=== PATIENT | male | born 1930 | race Caucasian/White ===

== ENCOUNTER → 2019-05-08 | Outpatient (CLI) | payer MEDICARE ==
[~2019-05-08] MED LIST: ACETAMINOPHEN325 M1 PO; ASPIRIN EC81 M1 PO; ATENOLOL 25 MG25 M1 PO; ATENOLOL 50MG T50 MG PO; CARDIZEM30 MG PO; FISHOIL; METFORMIN HCL500 M3 PO; METHYLPHENIDATE5 M1 PO; MIRALAX17 GM PO; PEPCID20 MG PO; PLAQUENIL200 MG PO; PLAVIX 75 MG TA75 MG PO; QUINAPRIL 20 MG20 MG PO; SIMVASTATIN80 MG PO; TRAMADOL 50 MG50 MG PO; TRICOR145 MG PO; ZOCOR 10 MG TAB10 MG
== END ==
LOC: SJCVCIMAG 04-02 11:46
DX: I65.23 Occlusion and stenosis of bilateral carotid arteries (principal); I11.9 Hypertensive heart disease without heart failure; I08.3 Combined rheumatic disorders of mitral, aortic and tricuspid valves; I70.202 Unspecified atherosclerosis of native arteries of extremities, left leg; I25.10 Atherosclerotic heart disease of native coronary artery without angina pectoris; E78.00 Pure hypercholesterolemia, unspecified; Z90.49 Acquired absence of other specified parts of digestive tract; Z79.899 Other long term (current) drug therapy; Z87.891 Personal history of nicotine dependence

== ENCOUNTER → 2019-05-19 | Outpatient (CLI) | payer MEDICARE ==
[~2019-05-19] MED LIST changes: -METFORMIN HCL500 M3 PO; -PLAQUENIL200 MG PO; -SIMVASTATIN80 MG PO
== END ==
LOC: SJCVC 12:10
DX: I21.19 ST elevation (STEMI) myocardial infarction involving other coronary artery of inferior wall (principal); I21.09 ST elevation (STEMI) myocardial infarction involving other coronary artery of anterior wall; R94.31 Abnormal electrocardiogram [ECG] [EKG]; I25.10 Atherosclerotic heart disease of native coronary artery without angina pectoris; I35.0 Nonrheumatic aortic (valve) stenosis; I73.9 Peripheral vascular disease, unspecified; E78.00 Pure hypercholesterolemia, unspecified; I10 Essential (primary) hypertension; E11.9 Type 2 diabetes mellitus without complications; M19.90 Unspecified osteoarthritis, unspecified site; N40.0 Benign prostatic hyperplasia without lower urinary tract symptoms; Z87.891 Personal history of nicotine dependence; Z79.84 Long term (current) use of oral hypoglycemic drugs; Z79.899 Other long term (current) drug therapy

== ENCOUNTER 2019-05-22 10:33 | Emergency (ER) | payer OTHER ==
[~2019-05-22] VITALS: Ht 175.3 cm; Wt 79.4 kg
[~2019-05-22 10:33] MED LIST changes: -ACETAMINOPHEN325 M1 PO; -ATENOLOL 50MG T50 MG PO; -CARDIZEM30 MG PO; -METHYLPHENIDATE5 M1 PO; -MIRALAX17 GM PO; -PEPCID20 MG PO; -PLAVIX 75 MG TA75 MG PO; -TRAMADOL 50 MG50 MG PO
[2019-05-22] MEDS ORDERED: TRAMADOL 50 MG50 MG PO (14:19)
[2019-05-22 14:44] VITALS: BP 130/86
[2019-05-26] MEDS ORDERED: PLAVIX 75 MG TA75 MG PO (08:03)
== END 2019-05-22 14:46 | disposition home or self-care (01) ==
LOC: ER 10:33
DX: S00.83XA Contusion of other part of head, initial encounter (principal); S80.01XA Contusion of right knee, initial encounter; Z90.49 Acquired absence of other specified parts of digestive tract; Z90.89 Acquired absence of other organs; Y08.89XA Assault by other specified means, initial encounter; Y93.89 Activity, other specified; Y92.091 Bathroom in other non-institutional residence as the place of occurrence of the external cause; Y99.8 Other external cause status

== ENCOUNTER 2019-05-26 02:24 | Inpatient (IN) | payer OTHER ==
[~2019-05-26] VITALS: Ht 175.3 cm; Wt 74.9 kg
[2019-05-26] VITALS (31 sets, daily range): BP systolic 121–172; BP diastolic 45–113
--- NOTE | ~2019-05-26 | HC ---
[facility] [place] [place] [address] CONSULTATION Name: GABBY RASHEED Room #: 361-P [facility] IN ..#: [id number] Admission: 05/26/19 Attend Phys: Alfreda Smith MD Discharge: Date of : [birth year] Report #: [id number] THIS REPORT FOR: cc: [facility] - Clinic physician unknown [facility] - Clinic physician unknown Aurelio Morris MD ~ CC: Alfreda Smith [facility] unknown DATE OF SERVICE: 06/01/2019 HISTORY OF PRESENT ILLNESS: The patient is an 88-year-old white male who was feeling weak, unable to walk, had a fall 5 days prior to admission. He was admitted, noted to have sustained a subdural hematoma. There is a right convexity subdural hematoma. Plavix was discontinued. Neurosurgery has followed him from a conservative perspective. He also was diagnosed with encephalopathy. He was placed on Ritalin 5 mg, which has helped him increases in alertness. He also has a prior history of obstructive sleep apnea and noted to be noncompliant. He was noted to have a fever with questionable infiltrate/pneumonia. He has been on IV antibiotics. He also has a prior history of dysphagia and has had prior esophageal dilatation and is currently on pureed with honey thickened liquids. We are seeing him in rehabilitation medicine consultation. PAST MEDICAL HISTORY: Includes hypertension, hyperlipidemia, coronary artery disease. PAST SURGICAL HISTORY: Prior cholecystectomy, prior tonsillectomy. MEDICATIONS: Please see the full medication listing. SOCIAL HISTORY: Lives with his in a senior independent living apartment, no steps, used a cane or a walker. FAMILY HISTORY: Per patient is unremarkable. ALLERGIES: No known drug allergies. REVIEW OF SYSTEMS: No current complaints of chest pain, shortness of breath or abdominal discomfort. PHYSICAL EXAMINATION: GENERAL: An 88-year-old slender white male in no obvious distress. Multiple facial ecchymoses are noted. VITAL SIGNS: Temperature 97.2, pulse 66, respirations 18, blood pressure 161/78. [address] [address] CONSULTATION Name: GABBY RASHEED Room #: 361-P [facility] IN .R.#: [id number] Admission: 05/26/19 Attend Phys: Alfreda Smith MD Discharge: Date of : [birth year] Report #: [id number] NEUROLOGIC: He is alert. He knows he is at [facility], knows that he lives with his . He will follow basic 1 step commands. He does have some slowness to his responses. HEENT: Facies appeared symmetric. EXTREMITIES: Functional range of motion of the upper extremity strength is a grade 3+/5. Lower extremities functional range of motion, strength is at least a grade 3+/5. He is mod assist with sit to stand transfers. Once up, he has ambulated 50 feet, max assist with a front-wheeled walker. Upper body dressing has been mod assist with lower body dressing, dependent. ASSESSMENT: An 88-year-old white male with the following problem list: 1. Right convexity subdural hematoma being managed conservatively. 2. Gait instability with history of falls. 3. Coronary artery disease with prior percutaneous coronary artery intervention. 4. History of prior dysphagia with prior esophageal dilatation on pureed and nectar thickened liquid. 5. History of hypertension. 6. Hyperlipidemia. 7. Obstructive sleep apnea. Neurology indicated that the patient does have a BiPAP machine at home and that the has been asked to bring into the hospital to try to work with him on it. He apparently could not have an MSLT because he was found to have untreated sleep apnea. Once he goes home, he needs to go back to Dr. Abrams and have an MSLT done. The also told Neurology that the patient had been sleepy all his life and that his brothers have the same way. Neurology indicated that the patient had not been tested for narcolepsy. 8. History of aortic valve disease. 9. History of coronary artery disease with stents in 2006. The patient follows with Dr. Lopez. 10. History of carotid artery stenosis, 40-50% stenosis bilaterally from carotid duplex 05/08/2019. PLAN: Insurance will be checked regarding an acute in-hospital inpatient rehabilitation stay. He certainly has multiple medical comorbidities and is being monitored regarding his subdural hematoma. He was able to tolerate his therapies better with the Ritalin on board. We will be glad to follow along with you regarding his rehab therapy needs. By: [id number] Aurelio Morris MD /BRIGITTE
[~2019-05-26 02:24] MED LIST changes: +TRAMADOL 50 MG50 MG PO
[2019-05-26 02:48] LABS: BASOPHILS 0.3 % (0.0-2.0); EOSINOPHILS 0.4 % (0.0-3.0); HEMATOCRIT 39.3 % (42.0-52.0); HEMOGLOBIN 12.6 gm/dL (14.0-18.0); LYMPHOCYTES 13.3 % (24.0-44.0); MCH 25.5 pg (26.0-34.0); MCHC 32.1 g/dL (28.0-37.0); MCV 79.6 fL (80.0-100.0); MONOCYTES 9.5 % (1.0-8.0); PLATELET COUNT 186 thou/uL (150-400); POLYS 76.5 % (36.0-66.0); RBC 4.93 mil/uL (4.50-6.00); RDW 20.1 % (10.5-14.5); WBC 9.2 thou/uL (4.0-11.0)
[2019-05-26 03:00] LABS: CALCIUM 8.8 mg/dL (8.5-10.1); CREATININE 0.8 mg/dL (0.7-1.3); POTASSIUM 3.9 mmol/L (3.5-5.1)
[2019-05-26 03:06] LABS: ALBUMIN 2.9 g/dL (3.4-5.0); DIRECT BILIRUBIN 0.2 mg/dL (<0.1-0.2); TOTAL BILIRUBIN 0.9 mg/dL (<0.1-1.0); TOTAL PROTEIN 6.7 g/dL (6.4-8.2)
[2019-05-26 04:07] LABS: URINE BILIRUBIN NEGATIVE (Negative); URINE BLOOD NEGATIVE (Negative); URINE CLARITY CLEAR; URINE COLOR YELLOW; URINE GLUCOSE-RANDOM* NEGATIVE (Negative); URINE KETONES 1+ (Negative); URINE LEUKOCYTES-REFLEX NEGATIVE (Negative); URINE NITRITE-REFLEX NEGATIVE (Negative); URINE PROTEIN (DIPSTICK) 2+ (Negative); URINE SPECIFIC GRAVITY >= 1.030 (1.005-1.035); URINE UROBILINOGEN 0.2 E.U./dl (0.2-1.0)
[2019-05-26 04:15] LABS: BACTERIA-REFLEX 1-9 Few /HPF (None Seen); CRYSTALS None Seen /LPF (None Seen); HYALINE CASTS 0-3 Few /LPF (None Seen); MUCUS 4-6 Moderate strn/LPF (None Seen); SQUAMOUS 4-10 Moderate /LPF (0-3); URINE RBC 0-2 Rare /HPF (0-2); URINE WBC-REFLEX 0-5 Rare /HPF (0-5)
[2019-05-26] MEDS ORDERED: PLAVIX 75 MG TA75 MG PO ×2 (08:03)
--- NOTE | 2019-05-26 09:00 | NUR ---
chart review. pt resting in bed with eyes closed. no family at bedside. per chart called form ems, had past history of fall prior to hospital. will cont following as needed for dc needs.
--- NOTE | 2019-05-26 17:33 | NUR ---
PT WITH DYSPHAGIA, SLOW TO RESPOND. PUPILS REACTIVE, FOLLOWING COMMANDS JUST NOT COMMUNICATING WITH WORDS. SPOKE WITH NERUOSURGERY, STAT CT. RESULTS SHOWED NO NEW CHANGES FROM PRIOR EXAM. CONSULT FOR NEUROLOGY PLACED.
--- NOTE | 2019-05-26 18:31 | NUR ---
PT ADMITTED TO ICU FROM ED FOR SUBDURAL HEMATOMA. NEUROSURGERY CONSULT. CARDIOLOGY CONSULT. VSS. PT ALERT TO SELF. PLACE. SITUATION. SLOW TO RESPOND. PER FAMILY, PT VERY HARD OF HEARING. FOLLOW COMMANDS BUT DROWSY. AWAKENS TO STIMULI. IV FLUIDS INFUSING. ADMISSION ASSESSMENTS COMPLETE. CONSENTS TO BE SIGNED BY WHEN AVAILABLE. FALL PRECAUTIONS IN PLACE. WILL CONTINUE TO MONITOR.
--- NOTE | 2019-05-26 20:28 | NUR ---
PATIENT SBP: 161-167. SPOKE WITH BRAKE OPERATOR SHEET METAL RON CHAMPAGNE WORKING WITH DR DANIS PATINOING BLOOD PRESSURE PARAMETERS. WAS TOLD TO MAINTAIN A SBP <150, AND IF UNABLE TO TAKE PO PILLS COULD START PT ON CARDENE GTT. PATIENT STARTED ON CARDENE GTT PER PROTOCOL. PT BLOOD PRESSURE SLOWLY DROPPING WITH A BP NOW OF 153/65.
--- NOTE | 2019-05-26 23:32 | NUR ---
PATIENT VERY RESTLESS. TRYING TO GET OUT OF BED, THROWING LEGS OVER BEDRAIL. NEURO ASSESSMENT COMPLETED. LEFT PUPIL NOTED TO BE 3MM, RIGHT 2MM. DR. SHIELDS WITH NEUROLOGY NOTIFIED OF THE ABOVE. ORDER OBTAINED FOR 0.25 MG LORAZEPAM. WILL REPEAT HEAD CT IN AM. WILL CONTINUE TO DO NEURO CHECK Q1H.
[2019-05-27] VITALS (54 sets, daily range): BP systolic 99–161; BP diastolic 33–80
--- NOTE | 2019-05-27 03:42 | NUR ---
PT NOTED TO HAVE DARK RED URINE OUT OF RIZZO. FIELD SERVICES MANAGER ELIANA NOTIFIED. ORDERS OBTAINED FOR MORNING LABS. WILL CONTINUE TO MONITOR.
[2019-05-27 05:23] LABS: HEMATOCRIT 42.4 % (42.0-52.0); HEMOGLOBIN 13.7 gm/dL (14.0-18.0); MCH 26.2 pg (26.0-34.0); MCHC 32.3 g/dL (28.0-37.0); MCV 81.2 fL (80.0-100.0); RBC 5.21 mil/uL (4.50-6.00); RDW 20.7 % (10.5-14.5); WBC 13.1 thou/uL (4.0-11.0)
[2019-05-27 05:57] LABS: ALBUMIN 2.8 g/dL (3.4-5.0); CALCIUM 8.6 mg/dL (8.5-10.1); CREATININE 0.8 mg/dL (0.7-1.3); MAGNESIUM 1.7 mg/dL (1.8-2.4); PHOSPHORUS 3.7 mg/dL (2.5-4.9)
[2019-05-27 16:24] LABS: HEMATOCRIT 41.1 % (42.0-52.0); HEMOGLOBIN 13.3 gm/dL (14.0-18.0)
--- NOTE | 2019-05-27 17:59 | NUR ---
PT IS DROWSY WITH SUBDURAL HEMATOMA. MRI DONE TODAY. DR. GUZMAN SEEN PT NEUROLOGIST TODAY EEG WAS DONE TODAY. BATH DONE TODAY. LUNGS ARE CLEAR TO DIMINISHED. NPO TODAY DUE TO DROWSY TO DO A SWALLOW TEST TODAY. RIZZO TO DD WITH RED TINGE BLOOD NOTED AND DR. FERNANDEZ AWARE IT. PT CODE STATUS CHAGED TODAY TO DNR. NO ISSUES AT THIS TIME WILL CONTINUE TO MONITOR AND ASSESS PER NURSING
[2019-05-28] VITALS (64 sets, daily range): BP systolic 112–164; BP diastolic 45–80
[2019-05-28 09:57] LABS: BE(vivo) -0.7 mmol/L (-2 to +3); HCO3 23.9 mmol/L (22.0-26.0); PCO2 39.3 mmHg (35.0-45.0); PO2 96.6 mmHg (80.0-100.0); pH 7.401 (7.360-7.450); sO2 97.4 % (92.0-98.0)
--- NOTE | 2019-05-28 16:27 | NUR ---
ASSUMED CARE OF PATIENT AT 1500, PATIENT IS DROWSY AND OCCASIONALLY RESTLESS. VITALS STABLE AND DENIES PAIN. WHEN AWAKE IS ORIENTED TO PERSON AND PLACE. NO CONCERNS EXPRESSED AT THIS TIME, WILL CONTINUE WITH POC.
[2019-05-29] VITALS (16 sets, daily range): BP systolic 120–159; BP diastolic 44–88
--- NOTE | 2019-05-29 09:19 | EEG ---
[facility] [place] [address] ELECTROENCEPHALOGRAM Name: GABBY RASHEED Room #: 245-P [facility] IN M.R.#: [id number] Admission: 05/26/19 Attend Phys: Alfreda Smith MD Discharge: Date of : [birth year] Report #: [id number] THIS REPORT FOR: //name// CC: FAM ginger Willy Jauregui DATE OF SERVICE: 05/27/2019 This patient is being evaluated for altered mental status. EEG was done by placing the electrode by standard 10-20 system of electrode placement. Both referential and sequential montages were used for recording. Background activity in this patient's EEG is about 7 Hz and 30 microvolt. It is a symmetrical activity. Photic stimulation was unremarkable. Throughout the record, no active epileptiform activity was noticed. IMPRESSION: This is an abnormal EEG because it is disorganized and poorly formed. That is a nonspecific abnormality, which can occur with encephalopathy, effect of psychotropic medication, dementia, etc. Clinical correlation is recommended. <ELECTRONICALLY SIGNED> By: Iron Valentin MD 05/29/19 0919 [id number] Iron Valentin MD /nt
--- NOTE | 2019-05-29 09:35 | NUR ---
cm visited with and daughter perry at bedside, and darinel just moved into [facility] in [facility] in dec 2018, they do not offer increased help it [place]. primary care is at clinic dr hayes. no hh or rehab in past."/paula . education on snf, home health and pd. will cont following as needed for dc needs.
--- NOTE | 2019-05-29 10:32 | NUR ---
Nutrition: Pt NPO x 4 days. If unable to advance diet today. rec dobhoff placement and start tube feeds of Glucerna 1.2 to reach 60 mL/hr.
--- NOTE | 2019-05-29 12:53 | NUR ---
pt up in chair with assistance of physical therapy (2 assist), well tolerated. swallow study completed. opening eyes spontaneously, more alert, trying to use the tv controller. feeding pt his lunch. report called to JAYLEN Jovel at [phone].
--- NOTE | 2019-05-29 13:45 | NUR ---
MATTHIAS OWEN'D, REMOVED 10 CC FLUID FROM BALLOON. PT TRANSFER INTO CHAIR WITH 2 ASSIST. TRANSFERRED TO CCU/TELE #361 IN WHEELCHAIR WITH MARBLE CLEANER. JAYLEN CASTELAN UPDATED ON PT CARE.
--- NOTE | 2019-05-29 18:41 | NUR ---
PATIENT ADMITTED TO UNIT. EXTERNAL CATH PLACED. HE IS QUITE LETHERGIC AT THIS TIME. UNABLE TO STAY AWAKE ENOUGH TO ANSWER QUESTIONS AT THIS TIME. WILL CONT WITH PLAN OF CARE.
[2019-05-30] VITALS (7 sets, daily range): BP systolic 147–186; BP diastolic 63–103
--- NOTE | 2019-05-30 08:27 | NUR ---
ASSUMED CARE AT 1900. PT ALERT TO HIMSELF, PLACE, AND SITUATION; STILL SOMEWHAT GROGGY WITH SPEECH SLIGHTLY HARD TO UNDERSTAND. URINATED LARGE AMOUNT AFTER PULLING EXTERNAL CATHETER OFF; REPLACED CATH AND ONLY HAD ABOUT 150 ML THE REST OF THE NIGHT. GAVE TYLENOL ONCE OVERNIGHT FOR HEADACHE WHICH PT REPORTED HELPED. NO OTHER CONCERNS, SHIFT REPORT GIVEN AT 0700.
[2019-05-31 04:24] VITALS: BP 156/76
--- NOTE | 2019-05-31 05:25 | NUR ---
Received report from offgoing RN and assumed patient care. Patient is AAOx2 and noted to be on room air and SR with PAC's on the monitor. Patient's HR dropped to the 40-50's while sleeping. VS remained stable and no acute events occurred.
[2019-05-31 07:27] VITALS: BP 179/77
[2019-05-31 11:20] VITALS: BP 140/70
[2019-05-31 15:47] VITALS: BP 146/57
--- NOTE | 2019-05-31 18:14 | NUR ---
ASSUMED PATIENT CARE AT 0700. A/O X3. VSS. Q2H TURN. INCONTINET URINE AND BOWEL. SLOWLY TOWARDS POC GOALS.
[2019-05-31 20:00] VITALS: BP 162/80
[2019-06-01 04:35] VITALS: BP 185/74
--- NOTE | 2019-06-01 05:43 | NUR ---
Received report from offgoing RN and assumed patient care. Patient is feeling much better today than yesterday and is talking more than previously noted. VS remained stable and PRN hydralazine was given as ordered. No acute events occurred during this shift. Patient is progressing towards goal.
--- NOTE | 2019-06-01 08:09 | NUR ---
0705 Received report from Sosa YORK patient sleeping at this time.
[2019-06-01 08:15] VITALS: BP 161/78
[2019-06-01 11:49] VITALS: BP 165/67
[2019-06-01 15:26] VITALS: BP 138/62
--- NOTE | 2019-06-01 16:39 | NUR ---
TEDDY reviewed chart and spoke with nursing and attending physician. Pt was transferred to 3W from ICU and is progressing towards goals for discharge. [facility] consult ordered today. TEDDY discussed with [facility] rehab nurse, who states they will submit for insurance authorization today. TEDDY met with pt at bedside. No family present. TEDDY spoke with pt's dtr, Kristin, via phone to provide update and discuss discharge planning: post-acute placement. Pt's dtr states they were under the impression that pt would move to [facility] soon. TEDDY explained need for insurance authorization. SW also discussed need to have a SNF preference, in case insurance does not authorize inpt acute rehab. Pt's dtr verbalized understanding. Pt's family to review list. TEDDY is following to assist as needed with discharge planning.
[2019-06-01 19:16] VITALS: BP 173/73
--- NOTE | 2019-06-01 20:29 | NUR ---
Patient stayed up in the chair all day, got up to use the commode he was a moderate assist x2. He did not eat very well his daughter states he does not eat very well anyways. He does not like the thickened liquids but did have some difficulty at times with these so I explained to him that for now this is what it was going to have to be. He took his pills whole in applesauce without difficulty. He has had 3 lg bms today.
[2019-06-02] VITALS (7 sets, daily range): BP systolic 140–185; BP diastolic 62–104
--- NOTE | 2019-06-02 04:12 | NUR ---
Patient making slow progress towards outcome goals. Vital signs and rhythm stable. Incontinent or urine. Poor oral intake. IVfluids infusing. Able to take med whole with applesauce. Denies pain. Tolerating home CPAP sat mid 90's on roomair.
--- NOTE | 2019-06-02 07:44 | NUR ---
0710 Received report from Marita YORK patient resting quietly in bed at this time no complaints or concerns voiced.
--- NOTE | 2019-06-02 08:25 | NUR ---
PATIENT SEEN FOR REHAB CONSULT BY DR. HALE ON 06/01/19 AND PATIENT IS A CANDIDATE FOR ACUTE REHAB. INSURANCE AUTHORIZATION REQUESTED. PATIENT CAN BE ADMITTED TO ACUTE REHAB/[facility] IF AUTHORIZATION IS RECEIVED AND BED IS AVAILABLE. WILL AWAIT INSURANCE RESPONSE. THANK YOU FOR THIS REFERRAL.
--- NOTE | 2019-06-02 10:45 | NUR ---
Patient took am medication without difficulty he has been sitting up in the chair. He did eat better at breakfast is at bedside at the moment
--- NOTE | 2019-06-02 12:46 | NUR ---
Patient assisted back to bed at this time. He has been up in the chair since breakfast. bed alarm in place call light within reach.
--- NOTE | 2019-06-02 15:32 | NUR ---
TEDDY reviewed chart and spoke with nursing and attending physician. Pt is progressing towards goals for discharge. [facility] has submitted for insurance authorization. TEDDY met with pt, pt's and dtr at bedside to discuss discharge plan. Family aware that insurance will need to provide insurance authorization for post-acute placement. Pt's requests referral to [facility] if insurance denies [facility]. planner/scheduler to fax referral to [facility] for clinical acceptance. TEDDY is following to assist as needed with finished goods planner.
--- NOTE | 2019-06-02 17:06 | NUR ---
FAXED REFERRAL TO [facility] RECEIVED CONFIRMATION AND LEFT MSG WITH YING IN ADM WILL F/U WITH FACILITY IHE MORNING. DP TO FOLLOW
--- NOTE | 2019-06-02 18:10 | NUR ---
Patient was up in the chair for supper then he got back to bed. He seemed more alert this afternoon. He has no control over his bladder.
[2019-06-03 04:43] VITALS: BP 169/76
--- NOTE | 2019-06-03 06:38 | NUR ---
ASSUMED CARE AT 1900. PT DROWSY BUT AROUSEABLE, FLAT AFFECT AND DELAYED RESPONSE WHEN ASKING QUESTIONS. DECLINED TO WEAR CPAP OVERNIGHT. DENIED SOB BUT MORE DYSPNIC WHEN LYING FLAT, IMPROVED WITH SITTING UP. INCONT MULTIPLE TIMES, CHANGED GOWN TWICE. NO OTHER CONCERNS, WILL CONTINUE TO MONITOR.
[2019-06-03 08:10] VITALS: BP 174/76
--- NOTE | 2019-06-03 11:29 | NUR ---
PT CARE ASSUMED AT 0700, PT ALERT AND OREINTED X3, FORGETFUL. PT DENIES ANY PAIN, NAUSEA AND VOMITING. NO SIGNS OF DISTRESS NOTED. ASSESSMENT COMPLETED. PT TURNED EVERY 2 HOURS. CALL LIGHT AND TABLE IN REACH. DAUGHTER VISITING. WILL CONTINUE TO MONITOR. BED ALARM ON.
[2019-06-03 12:27] VITALS: BP 190/84
--- NOTE | 2019-06-03 14:09 | NUR ---
TEDDY reviewed chart and spoke with nursing and attending physician. Pt is progressing towards goals for discharge. TEDDY notified by [facility] administrative liaison that insurance has authorized for pt to go to 5N when medically stable. Discharge planned for later this week. TEDDY spoke with pt's via phone to provide update. Pt's is agreeable with plan. TEDDY updated Belinda at [facility], as we do not need SNF placement at this time. TEDDY is following to assist as needed with discharge planning.
[2019-06-03 16:17] VITALS: BP 149/83
[2019-06-03 20:35] VITALS: BP 166/91
[2019-06-04 00:11] VITALS: BP 138/84
[2019-06-04 04:08] VITALS: BP 183/85
--- NOTE | 2019-06-04 06:25 | NUR ---
ASSUMED CARE AT 1900. PT DROWSY WITH FLAT AFFECT, OFTEN REQUIRES MULTIPLE PROMPTS TO ANSWER QUESTIONS. C/O NAUSEA AT START OF SHIFT, GAVE DOSE OF ZOFRAN FOR RELIEF. DENIED PAIN OR SOB, BUT CONTINUED TO BE WINDED WHEN LYING FLAT OR WITH TURNS. LUNG SOUNDS COARSE. APPLIED EXTERNAL MALE CATH WHICH HELPED PART OF THE NIGHT BEFORE COMING LOOSE AND LEAKING, NEEDING REPLACEMENT AGAIN THIS AM. BP ELEVATED THIS AM, GAVE ONE DOSE OF HYDRALAZINE. NO OTHER CONCERNS, WILL CONTINUE TO MONITOR.
[2019-06-04 07:29] VITALS: BP 163/68
--- NOTE | 2019-06-04 10:46 | NUR ---
AUTHORIZATION RECEIVED FROM PATIENT'S INSURANCE ON 06/03/19. PLAN FOR PATIENT TO ADMIT TO ACUTE REHAB WHEN MEDICAL STABLE ON 06/05/19. [facility] AWARE.
--- NOTE | 2019-06-04 14:50 | NUR ---
TEDDY reviewed chart and spoke with nursing and attending physician. Discharge to [facility] is anticipated for tomorrow. SW confirmed with 5 rehabilitation construction specialist. TEDDY met with pt, and dtr at bedside to provide update. All are agreeable with discharge plan. TEDDY is following to assist as needed with discharge planning.
[2019-06-04 15:43] VITALS: BP 169/70
[2019-06-04 17:30] VITALS: BP 176/80
--- NOTE | 2019-06-04 18:52 | NUR ---
ASSUMED CARE OF PATIENT APPROX 1730. PT ORIENTED TO SELF, ALERT, VSS, NO SIGNS OF PAIN. PATIENT RESTING IN BED, NO SIGNS OF DISTRESS. IV PATENT ON RIGHT WRIST SALINE LOCKED, FALL PRECAUTIONS IN PLACE. WILL CONTINUE TO MONITOR.
[2019-06-05 00:22] VITALS: BP 182/93
--- NOTE | 2019-06-05 03:18 | NUR ---
Assumed pt care @1915. pt alert to self. incont of bowel and bladder. pt is on the swallow prec. staff anticipates pt's needs. pt wears cpap at night, sats wnl. pt is a q2 turn. ext mcgraw in place and replaced once. BP elevated and treated accordingly. no s/s of distress. will cont to monitor
[2019-06-05 08:18] VITALS: BP 180/90
[2019-06-05 13:08] VITALS: BP 180/93
[2019-06-05] MEDS ORDERED: METHYLPHENIDATE5 M1 PO ×2 (13:35)
[2019-06-05] MEDS ORDERED: ATENOLOL 50MG T50 MG PO ×2 (13:35)
[2019-06-05] MEDS ORDERED: ACETAMINOPHEN325 M1 PO ×2 (13:35)
[2019-06-05] MEDS ORDERED: MIRALAX17 GM PO ×2 (13:35)
[2019-06-05] MEDS ORDERED: PEPCID20 MG PO ×2 (13:35)
[2019-06-05] MEDS ORDERED: CARDIZEM30 MG PO ×2 (13:35)
--- NOTE | 2019-06-05 14:22 | NUR ---
CARE TEAM INDICATED THAT PT IS MEDICALLY STABLE TO DISCHARGE TO 5N ACUTE INPATIENT REHAB THIS DAY. ALL ARE AWARE AND AGREEABLE. NO OTHER CM INTERVENTION INDICATED. CASE CLOSED.
--- NOTE | 2019-06-05 14:40 | NUR ---
ASSUMED CARE OF PATIENT APPROX 0700. PATIENT ALERT AND ORIENTED TO SELF, VSS, NO APPARENT PAIN. PATIENT SAT IN RECLINER AND PARTICIPATED WITH PT/OT. PATIENT TOOK MEDICATION CRUSHED TODAY. PATIENT EATING 25%OF MEALS. IV REMAINS PATENT IN LEFT WRIST. NO SIGNS OF DISTRESS. PATIENT ADMITTED TO 5N REHAB, REPORT GIVEN TO NURSE. ALL BELONGINGS SENT WITH PATIENT.
== END 2019-06-05 13:46 | DRG 82 ==
LOC: ER 02:24 → EROBS 05:33 → 3W 05:33 → ICU 05:33 → EROBS 07:23 → ICU 08:09 → 3W 05-29 14:22 → 4W 06-04 18:36 → ENTRNSPT 06-05 13:34 → EDTRNSPTSTS 06-05 13:37 → 4W 06-05 13:46
PROVIDERS: Emergency Medicine; Nurse Practitioner; ADMIT Hospitalist
PROC: 5A09357 Assistance with Respiratory Ventilation, Less than 24 Consecutive Hours, Continuous Positive Airway Pressure (ICD-10-PCS; principal; 2019-05-30)
PROC: 5A09357 Assistance with Respiratory Ventilation, Less than 24 Consecutive Hours, Continuous Positive Airway Pressure (ICD-10-PCS; 2019-05-31)
PROC: 5A09357 Assistance with Respiratory Ventilation, Less than 24 Consecutive Hours, Continuous Positive Airway Pressure (ICD-10-PCS; 2019-06-01)
PROC: 5A09357 Assistance with Respiratory Ventilation, Less than 24 Consecutive Hours, Continuous Positive Airway Pressure (ICD-10-PCS; 2019-06-02)
PROC: 5A09357 Assistance with Respiratory Ventilation, Less than 24 Consecutive Hours, Continuous Positive Airway Pressure (ICD-10-PCS; 2019-06-03)
PROC: 5A09357 Assistance with Respiratory Ventilation, Less than 24 Consecutive Hours, Continuous Positive Airway Pressure (ICD-10-PCS; 2019-06-04)
PROC: 5A09357 Assistance with Respiratory Ventilation, Less than 24 Consecutive Hours, Continuous Positive Airway Pressure (ICD-10-PCS; 2019-06-05)
DX: S06.5X9A Traumatic subdural hemorrhage with loss of consciousness of unspecified duration, initial encounter (principal); E43 Unspecified severe protein-calorie malnutrition; G93.41 Metabolic encephalopathy; W17.89XA Other fall from one level to another, initial encounter; I10 Essential (primary) hypertension; E78.5 Hyperlipidemia, unspecified; I25.10 Atherosclerotic heart disease of native coronary artery without angina pectoris; G47.33 Obstructive sleep apnea (adult) (pediatric); R29.6 Repeated falls; I35.8 Other nonrheumatic aortic valve disorders; E11.9 Type 2 diabetes mellitus without complications; Z66 Do not resuscitate; R31.9 Hematuria, unspecified; G47.19 Other hypersomnia; R13.10 Dysphagia, unspecified; I16.0 Hypertensive urgency; Z91.81 History of falling; Z91.14 Patient's other noncompliance with medication regimen; Z68.24 Body mass index [BMI] 24.0-24.9, adult; Y93.89 Activity, other specified; Y92.89 Other specified places as the place of occurrence of the external cause; Y99.8 Other external cause status; Z90.49 Acquired absence of other specified parts of digestive tract; Z90.89 Acquired absence of other organs; Z95.5 Presence of coronary angioplasty implant and graft; Z79.82 Long term (current) use of aspirin; Z79.899 Other long term (current) drug therapy
CPT/HCPCS: 10047; 10078; 10879

== ENCOUNTER 2019-06-04 06:22 | Inpatient (IN) | payer OTHER ==
[~2019-06-04] VITALS: Ht 172.7 cm; Wt 68.8 kg
--- NOTE | ~2019-06-04 | H ---
[facility] [place] [address] HISTORY AND PHYSICAL Name: GABBY RASHEED Room #: 505-P [facility] IN ..#: [id number] Admission: 06/05/19 Attend Phys: Aurelio Morris MD Discharge: Date of : [birth year] Report #: [id number] THIS REPORT FOR: cc: [facility] - Clinic physician unknown [facility] - [facility] physician unknown Aurelio Morris MD ~ CC: Aurelio Morris [facility] unknown DATE OF SERVICE: 06/05/2019 HISTORY AND PHYSICAL/POST-ADMISSION PHYSICIAN EVALUATION HISTORY OF PRESENT ILLNESS: The patient is an 88-year-old white male who was originally admitted on 05/26/2019 to [facility] after a fall with closed head injury and subdural hematoma. Noncontrast CT of the head revealed a convexity subdural hematoma measuring up to 9 mm in thickness without significant mass effect. Neurosurgery was involved as well as Neurology and the decision was made to manage him conservatively. He had serial noncontrast head CT and MRI of the brain showing gradual improvement of his subdural hematoma. He has had a significant functional decline from his premorbid status with mental status changes, decreased overall responsiveness with some somnolence and was started on Ritalin by Neurology. He is needing considerable more assistance of a premorbid with his functional mobility and ADLs and also has had a decline in his swallowing and is on a pureed diet with nectar thickened liquids. He has been admitted for acute in-hospital inpatient rehabilitation. PAST MEDICAL HISTORY: Includes hypertension, hyperlipidemia, and coronary artery disease. PAST SURGICAL HISTORY: Prior cholecystectomy and tonsillectomy. MEDICATIONS: Please see the full medication listing. SOCIAL HISTORY: Lives with his in a senior independent living apartment, no steps, used a cane or a walker, does have an involved daughter. FAMILY HISTORY: Unremarkable. ALLERGIES: No known drug allergies. REVIEW OF SYSTEMS: No complaints of chest pain, shortness of breath or abdominal discomfort. PHYSICAL EXAMINATION: GENERAL: The patient was seen yesterday on 06/05/2019. He was in no distress. [address] [address] HISTORY AND PHYSICAL Name: GABBY RASHEED A Room #: 505-P [facility] IN ..#: [id number] Admission: 06/05/19 Attend Phys: Aurelio Morris MD Discharge: Date of : [birth year] Report #: [id number] VITAL SIGNS: Temperature 36.6, pulse 84, respirations 20, blood pressure 172/76. He has multiple facial ecchymoses. NEUROLOGIC: He is able to answer basic questions. He has definite decreased verbalizations, but can follow up with basic 1 step commands. This is a definite latency to his responses. HEAD, EYES, EARS, NOSE, AND THROAT: Facies otherwise appeared symmetric. CHEST: Sounded clear to auscultation. CARDIOVASCULAR: Regular rate and rhythm. ABDOMEN: Bowel sounds positive, nontender. GENITOURINARY AND RECTAL: Deferred. NEURO: He knows the place. He knows the year. Follows basic 1 step commands. EXTREMITIES: Functional range of motion of the upper extremities with strength grade 3+/5. Lower extremities functional range of motion, strength is a grade 3+/5. He does not have any significant lower extremity edema. Functionally, he is needing increased assistance with basic mobility and ADLs. ASSESSMENT: An 88-year-old white male with the following problem list: 1. Closed head injury with subdural hematoma. 2. History of recurrent falls. 3. History of dementia as per Neurology. 4. Acute metabolic encephalopathy. 5. Somnolence, has been given a stimulant as noted above with Ritalin. 6. Dysphagia, on thickened liquids. 7. History of esophageal strictures. 8. Coronary artery disease. 9. Hypertension. 10. Hyperlipidemia. 11. Functional mobility and activities of daily living deficits and cognitive deficits. PLAN: The patient has been admitted for acute in-hospital inpatient rehabilitation. From a postadmission physician evaluation perspective, there are no relevant changes since the preadmission screening. Please see the above review of prior and current medical and functional conditions and comorbidities. Please see the patient's previous and current functional status. As far as risk of complications, the patient has multiple medical comorbidities as noted above. Initial plan of care involves the interdisciplinary acute inpatient rehabilitation program. Measurable functional goals would be for the patient to become modified independent with transfers, mobility, ADLs at least to improve to the point where he can return back to the home setting with his . Also to hopefully improve with his swallowing and cognitive issues. His prognosis is reasonably good with estimated length of stay probably at least 2 weeks[address] [address] HISTORY AND PHYSICAL Name: GABBY RASHEED Room #: 505-P [facility] M.R.#: [id number] Admission: 06/05/19 Attend Phys: Aurelio Morris MD Discharge: Date of : [birth year] Report #: [id number] will need to see how he does in therapies. Potential barriers would include his multiple medical comorbidities and decreased functional status. By: [id number] Aurelio Morris MD /BRIGITTE
--- NOTE | ~2019-06-04 | D ---
[facility] [place] [address] DISCHARGE SUMMARY Name: GABBY RASHEED Room #: 505-P [facility] IN M.R.#: [id number] Admission: 06/05/19 Attend Phys: Aurelio Morris MD Discharge: 06/08/19 Date of : [birth year] Report #: [id number] THIS REPORT FOR: cc: [facility] - Clinic physician unknown [facility] - Clinic physician unknown Aurelio Morris MD ~ THIS REPORT FOR: //name// CC: Aurelio HERNANDEZ unknown DATE OF SERVICE: 06/08/2019 See the discharge already completed. The patient was admitted to the acute inpatient rehab desai after a fall with closed head injury and subdural hematoma. He has a history of recurrent falls. Prior history of dementia. He had problems with somnolence, on the acute Med/Surg desai was given Ritalin. He was noted to have a history of dysphagia, on thickened liquids. The patient was admitted for acute inpatient rehabilitation. HOSPITAL COURSE: The patient was involved in the inpatient rehabilitation program. Upon seeing him this morning, the therapists have noted that he had had a gradual decline in his functional abilities over the weekend and he appeared to be more groggy and somnolent overall, although he would respond and did not have any specific focal weakness or changes from his prior examination. I was concerned and sent down for a stat CT of the head, which did not show any change with his subdural hematoma. The case was discussed with the hospitalist nurse practitioner as well and she ordered some labs and he has multiple lab abnormalities, which are quite marked with the sodium up to 162, potassium is 2.7, creatinine up to 2.2. Nursing staff indicated to me that he has been diagnosed with bilateral lower extremity DVTs and he is currently undergoing evaluation for pulmonary embolism. We are planning on discharging him from the acute inpatient rehab desai back over to the acute Med/Surg desai for further medical management. DISCHARGE DIAGNOSES: Include closed head injury with subdural hematoma. History of recurrent falls. Metabolic encephalopathy, significant electrolyte abnormalities. Bilateral lower extremity deep venous thrombosis, dysphagia, on thickened liquids, coronary artery disease, hypertension, and hyperlipidemia. By: [id number] Aurelio Morris MD /PMT
[~2019-06-04 06:22] MED LIST changes: +PLAVIX 75 MG TA75 MG PO
[2019-06-05] MEDS ORDERED: ACETAMINOPHEN325 M1 PO ×2 (13:35)
[2019-06-05] MEDS ORDERED: PEPCID20 MG PO ×2 (13:35)
[2019-06-05] MEDS ORDERED: CARDIZEM30 MG PO ×2 (13:35)
[2019-06-05] MEDS ORDERED: METHYLPHENIDATE5 M1 PO ×2 (13:35)
[2019-06-05] MEDS ORDERED: MIRALAX17 GM PO ×2 (13:35)
[2019-06-05] MEDS ORDERED: ATENOLOL 50MG T50 MG PO ×2 (13:35)
[2019-06-05 14:00] VITALS: BP 145/54
--- NOTE | 2019-06-05 18:28 | NUR ---
PATIENT ALERT AND ORIENTED TO SELF, DATE AND LOCATION WITH DAUGHTER AT BEDSIDE. TRANSFERRED FROM ROOM 462 TO ROOM 505 ABOUT 1400 TODAY IN STABLE CONDITION. PATIENT HAS POOR APPETITE AND NEEDED ASSISTANCE WITH HIS MEAL TRAY AND NEED ENCOURAGEMENT TO DRINK NECTER THICK LIQUIDS.
[2019-06-05 19:44] VITALS: BP 172/76
--- NOTE | 2019-06-06 03:32 | NUR ---
ASSUMED PT CARE AT 1900. PT DENIES PAIN. PM MEDS GIVEN CRUSHED IN APPLESAUCE. INCONTINENT OF BB, ABLE TO TURN WHEN CHANGING. LUNGS ARE COARSE/SLIGHTY WHEEZY. KNOWS NAME BUT DOESN'T RESPOND TO ANY OTHER QUESTIONS. BRUISING ALL OVER. PT IS A NO CODE. MOVES AROUND IN BED CONSTANTLY, SLEPT ON AND OFF ALL SHIFT, WILL CONTINUE TO MONITOR.
[2019-06-06 06:13] LABS: HEMATOCRIT 40.6 % (42.0-52.0); HEMOGLOBIN 12.9 gm/dL (14.0-18.0); MCH 25.9 pg (26.0-34.0); MCHC 31.9 g/dL (28.0-37.0); MCV 81.3 fL (80.0-100.0); RBC 4.99 mil/uL (4.50-6.00); RDW 22.1 % (10.5-14.5); WBC 12.1 thou/uL (4.0-11.0)
[2019-06-06 06:22] LABS: CALCIUM 8.9 mg/dL (8.5-10.1); CREATININE 1.4 mg/dL (0.7-1.3); POTASSIUM 3.4 mmol/L (3.5-5.1)
[2019-06-06 08:00] VITALS: BP 181/66
--- NOTE | 2019-06-06 14:05 | NUR ---
PT'S PRESENT IN PM. OT DISCUSSED PLOF AND HOME SETTING WITH DUE TO PT UNABLE TO PROVIDE INFORMATION DURING OT EVAL IN AM. REPORTS PT WAS INDEPENDENT WITH ALL ADLS FIRST BREAKER FEEDER, PT HAS BEEN INCONTINENT OF URINE FOR SEVERAL YEARS BUT WAS CONTINENT OF BOWEL. PT AND RECENTLY MOVED TO INDEPENDENT LIVING [facility] IN [facility], COMPLETES ADLS AND MEALS PROVIDED IN DINING ROOM. REPORTS PT HAS ACCESS TO A WALK IN SHOWER WITH GRAB BARS, BUT NO SHOWER CHAIR/BENCH. PT AMB WITH RW INDEPENDENTLY FIRST BREAKER FEEDER. OT REVIEWED REHAB POC AND OT POC/GOALS WITH PT'S . PT'S BROTHER ALSO PRESENT.
--- NOTE | 2019-06-06 15:57 | NUR ---
PT SLEEPING IN BED, WAS IN MAIN DINING ROOM FOR BREAKFAST AND LUNCH. PT MODERATE CARE WITH ADLS PT HAS LEFT SIDE WEAKNESS, PT TOOK AM MEDS IN APPLESAUCE. PT COOPERATIVE WITH CARE.
--- NOTE | 2019-06-06 17:44 | NUR ---
PT'S BLOOD SUGAR CHECKED AND S/S INSULIN ORDERED, PT TAKEN TO DINING ROOM FOR DINNER,
[2019-06-06 20:38] VITALS: BP 163/78
[2019-06-07 00:06] LABS: GLYCOHEMOGLOBIN (HGB A1C) 6.6 % (4.8-5.6)
--- NOTE | 2019-06-07 00:33 | NUR ---
PT ALERT AND ORIENTED X 1. LEFT SIDED WEAKNESS. INCONT OF URINE IN LARGE AMTS. BP ELEVATED AT 2340 TO 196/116. PT AGITATED DURING BP CHECK, RESTLESS AND MOVING ARM. CARDIZEM GIVEN ORDERED. PT DENIES PAIN OR DISCOMFORT. BED ALARM ON FOR SAFETY. PT HAS BEEN AWAKE MUCH OF NIGHT.
[2019-06-07 07:40] VITALS: BP 192/83
[2019-06-07 10:45] VITALS: BP 146/66
--- NOTE | 2019-06-07 16:16 | NUR ---
ASSUMED CARE OF PT AT 0710. PT IS ALERT DID NOT VERBALLY RESPOND TO ORIENTATION QUESTIONS, BUT WHEN ASKED IF HE HAD PAIN, HE SHOOK HIS HEAD NO. HE IS ON ROOM AIR. IS STABLE. IS UP TO W/C WITH MAX ASSIST OF 2 STAND PIVOT TO WITH GAIT BELT. FALL PRECAUTIONS & HOURLY ROUNDING MAINTAINED. IS ABLE TO TURN SELF IN BED, BUT IS TURNED Q2H. PT IS INCONTINENT TO B&B. IS CHECKED FREQUENTLY. TAKES PILLS CRUSHED IN APPLESAUCE. LABS & VITALS REVIEWED. PT IS CURRENTLY RESTING COMFORTABLY IN BED AT THIS TIME. CALL LIGHT WITHIN REACH. WILL CONTINUE TO MONITOR.
[2019-06-07 17:53] VITALS: BP 160/91
[2019-06-07 19:40] VITALS: BP 179/79
[2019-06-07 21:53] VITALS: BP 102/78
[2019-06-08 00:47] VITALS: BP 191/79
[2019-06-08 00:48] VITALS: BP 84/76
--- NOTE | 2019-06-08 03:10 | NUR ---
ASSUMED CARE AT APPROX 1900 EVENING 06/06. PT LYING IN BED AT CHANGE OF SHIFT. PT AWAKE AND RESTLESS MOVING HIMSELF AROUND IN BED FREQUENTLY SOMETIMES PUTTING ARMS AND LEGS OVER SIDERAILS OF BED. PT INCONTINENT OF URINE ASSISTED WITH PAD CHANGE TONIGHT. PT TOOK HS MEDS WITH APPLESAUCE CRUSHED. PT GIVEN PRN HYDRALAZINE ORDERED FOR BP. PT APPEARS TO BE SLEEPING AT PRESENT. BED ALARM ON AND CALL LIGHT IN REACH. WILL CONTINUE TO MONITOR.
[2019-06-08 05:33] VITALS: BP 173/69
[2019-06-08 07:30] VITALS: BP 167/61
[2019-06-08 10:15] LABS: BE(vivo) 7.5 mmol/L (-2 to +3); HCO3 30.9 mmol/L (22.0-26.0); PCO2 39.2 mmHg (35.0-45.0); PO2 54.4 mmHg (80.0-100.0); pH 7.515 (7.360-7.450); sO2 91.2 % (92.0-98.0)
[2019-06-08 10:24] LABS: ABSOLUTE NEUTROPHILS 11.8 thou/uL (1.4-8.2); BASOPHILS 0.3 % (0.0-2.0); HEMATOCRIT 42.8 % (42.0-52.0); HEMOGLOBIN 13.6 gm/dL (14.0-18.0); LYMPHOCYTES 5.7 % (24.0-44.0); MCH 25.9 pg (26.0-34.0); MCHC 31.6 g/dL (28.0-37.0); MCV 81.7 fL (80.0-100.0); MONOCYTES 4.7 % (1.0-8.0); PLATELET COUNT 268 thou/uL (150-400); POLYS 89.3 % (36.0-66.0); RBC 5.24 mil/uL (4.50-6.00); RDW 22.1 % (10.5-14.5); WBC 13.2 thou/uL (4.0-11.0)
--- NOTE | 2019-06-08 10:24 | NUR ---
chart review. pt up in bed, eyes closed and did respond by open his eyes and stated " hi "/ x 2. pt back from scan of head rt change in mental status per bedside staff. pt started on 02 2 L per nasal cannula. cm assisted plumber maintenance with reposition him up in bed. no family present during visit. cm visited with pt and daughter when he was down in icu prior to. pt and live in [facility] in [facility], primary MD dr hayes at [facility]. will cont following as needed for dc needs. there is not extra cares at [facility], not like [facility].
[2019-06-08 10:40] VITALS: BP 148/71
[2019-06-08 10:44] LABS: ALBUMIN 2.7 g/dL (3.4-5.0); CALCIUM 9.5 mg/dL (8.5-10.1); CREATININE 2.2 mg/dL (0.7-1.3); MAGNESIUM 2.4 mg/dL (1.8-2.4); TOTAL BILIRUBIN 0.9 mg/dL (<0.1-1.0); TOTAL PROTEIN 6.6 g/dL (6.4-8.2)
[2019-06-08 10:50] LABS: POTASSIUM 2.7 mmol/L (3.5-5.1)
[2019-06-08 11:14] LABS: ANISOCYTOSIS 2+; MICROCYTES 1+
[2019-06-08 11:52] LABS: URINE BILIRUBIN NEGATIVE (Negative); URINE BLOOD 1+ (Negative); URINE CLARITY CLEAR; URINE COLOR YELLOW; URINE GLUCOSE-RANDOM* NEGATIVE (Negative); URINE KETONES NEGATIVE (Negative); URINE LEUKOCYTES-REFLEX NEGATIVE (Negative); URINE NITRITE-REFLEX NEGATIVE (Negative); URINE PROTEIN (DIPSTICK) TRACE (Negative); URINE UROBILINOGEN 0.2 E.U./dl (0.2-1.0)
[2019-06-08 13:10] LABS: BACTERIA-REFLEX 1-9 Few /HPF (None Seen); CASTS None Seen /LPF (None Seen); CRYSTALS None Seen /LPF (None Seen); SQUAMOUS None Seen /LPF (0-3); URINE RBC None Seen /HPF (0-2); URINE WBC-REFLEX None Seen /HPF (0-5)
--- NOTE | 2019-06-08 15:35 | NUR ---
ASSUMED CARES AT 0700. PT LETHARGIC, VERY SLEEPY AND DIFFICULT TO AROUSE. PROVIDER NOTIFIED, ORDERS RECEIVED, PT ON BEDREST. SEE DIAGNOSTIC AND LABS FOR ORDERS AND RESULTS. PO2 AT 54%, PT ON 2L OXYGEN VIA NC. PT TRANSFERED TO ACUTE UNIT, REPORT GIVEN TO RECEIVING RN. PT IN IR FOR IVC FILTER, WILL BE TRANSFERRED TO 3W AFTER PROCEDURE.
[2019-06-08] MEDS ORDERED: METFORMIN HCL500 M3 PO (17:39)
[2019-06-08] MEDS ORDERED: PLAQUENIL200 MG PO (17:40)
[2019-06-08] MEDS ORDERED: ATENOLOL 25 MG25 M1 PO (17:41)
[2019-06-08] MEDS ORDERED: PLAVIX 75 MG TA75 MG PO (17:42)
[2019-06-08] MEDS ORDERED: SIMVASTATIN80 MG PO (17:43)
== END 2019-06-08 14:38 | disposition short-term general hospital (02) | DRG 82 ==
PROVIDERS: Nurse Practitioner; Nurse Practitioner Family; ADMIT Physical Medicine & Rehabilitation
DX: S06.5X9A Traumatic subdural hemorrhage with loss of consciousness of unspecified duration, initial encounter (principal); G93.41 Metabolic encephalopathy; I10 Essential (primary) hypertension; E78.5 Hyperlipidemia, unspecified; I25.10 Atherosclerotic heart disease of native coronary artery without angina pectoris; F03.90 Unspecified dementia, unspecified severity, without behavioral disturbance, psychotic disturbance, mood disturbance, and anxiety; R40.0 Somnolence; R13.10 Dysphagia, unspecified; G47.33 Obstructive sleep apnea (adult) (pediatric); R53.81 Other malaise; I16.0 Hypertensive urgency; Z90.49 Acquired absence of other specified parts of digestive tract; W18.39XA Other fall on same level, initial encounter; Y93.89 Activity, other specified; Y92.89 Other specified places as the place of occurrence of the external cause; Y99.8 Other external cause status
CPT/HCPCS: 10112

== ENCOUNTER 2019-06-08 12:36 | Inpatient (IN) | payer OTHER ==
[~2019-06-08] VITALS: Ht 175.3 cm; Wt 65.1 kg
--- NOTE | ~2019-06-08 | HC ---
[facility] [place] [address] CONSULTATION Name: GABBY RASHEED Room #: 360-P ADM IN M.R.#: [id number] Admission: 06/08/19 Attend Phys: Cb Carrasquillo MD Discharge: Date of : [birth year] Report #: [id number] THIS REPORT FOR: cc: [facility] - Clinic physician unknown [facility] - Clinic physician unknown Job Parks MD ~ CC: [facility] unknown Cb Carrasquillo DATE OF SERVICE: 06/09/2019 REASON FOR CONSULTATION: Acute kidney injury and hyponatremia. REASON FOR PRESENTATION: Status post fall. HISTORY OF PRESENT ILLNESS: This is obtained from the medical chart. The patient is currently obtunded and not able to provide me with any details. I thoroughly reviewed his medical record. He was admitted on 05/26/2019 after a fall and was found to have subdural hematoma. He did not have any significant mass effect or midline shift. Neurosurgery was consulted and I was told that the patient best be treated conservatively. The patient was transferred to rehabilitation. However, his sodium has been significantly gone up in the last few days, associated with the significant worsening of his renal function with the creatinine going up to 1.9. I was consulted to manage his hyponatremia and his acute kidney injury as stated above, the patient currently has severe mental compromise and is not able to provide me with the details. PAST MEDICAL HISTORY: 1. Hypertension. 2. Hyperlipidemia. 3. Coronary artery disease. 4. Peripheral vascular disease. 5. Diabetes mellitus. 6. Subdural hematoma. 7. History of aortic valve disease. 8. Tonsillectomy. 9. Cholecystectomy. 10. LAD stent. REVIEW OF SYSTEMS: Unobtainable given the patient's current mental status. SOCIAL HISTORY: Unobtainable given the patient's current mental status. ALLERGIES: None per medical records. FAMILY HISTORY: Unobtainable given the patient's current mental status. [facility] [address] [place] [address] CONSULTATION Name: GABBY RASHEED Room #: 360-P [facility] IN [facility]#: [id number] Admission: 06/08/19 Attend Phys: Cb Carrasquillo MD Discharge: Date of : [birth year] Report #: [id number] PHYSICAL EXAMINATION: GENERAL: The patient is confused, obtunded. VITAL SIGNS: Blood pressure is 139/59. HEAD AND NECK: No jugular venous distention. Dry mucous membrane. CHEST: No crackles. CARDIOVASCULAR: No rub detected. ABDOMEN: Soft. EXTREMITIES: Lower extremities, no edema. NEUROLOGICAL: Disoriented x 3. LABORATORY VALUES: From today revealed a white blood cell count of 14,000. Chemistry showed a sodium of 167, potassium 4.4, BUN 55, creatinine 1.9. ASSESSMENT AND PLAN: 1. Acute kidney injury. 2. Severe hyponatremia due to lack of water, access to free water in this patient with severe mental compromise. 3. Status post fall with subdural hematoma. 4. This is all due to free water deficit. 5. Discontinue current IV fluid. 6. Initiate on D5W. 7. Follow urine output. 8. Avoid nephrotoxins. 9. Continue to address his other comorbid conditions as per the primary team. Discussed further plans regarding his long-term care with his family. Currently, the patient is a DNR status. By: [id number] Job Parks MD /nt
[~2019-06-08 12:36] MED LIST changes: +ACETAMINOPHEN325 M1 PO; +ATENOLOL 50MG T50 MG PO; +CARDIZEM30 MG PO; +METHYLPHENIDATE5 M1 PO; +MIRALAX17 GM PO; +PEPCID20 MG PO
[2019-06-08 17:36] VITALS: BP 154/64
[2019-06-08] MEDS ORDERED: METFORMIN HCL500 M3 PO (17:39)
[2019-06-08] MEDS ORDERED: PLAQUENIL200 MG PO (17:40)
[2019-06-08] MEDS ORDERED: ATENOLOL 25 MG25 M1 PO (17:41)
[2019-06-08] MEDS ORDERED: PLAVIX 75 MG TA75 MG PO (17:42)
[2019-06-08] MEDS ORDERED: SIMVASTATIN80 MG PO (17:43)
[2019-06-08 19:03] LABS: HEMATOCRIT 43.3 % (42.0-52.0); HEMOGLOBIN 13.8 gm/dL (14.0-18.0); MCHC 31.8 g/dL (28.0-37.0); MCV 81.7 fL (80.0-100.0); RBC 5.3 mil/uL (4.50-6.00); RDW 22.4 % (10.5-14.5); WBC 12.7 thou/uL (4.0-11.0)
[2019-06-08 19:16] LABS: CALCIUM 9.3 mg/dL (8.5-10.1); CREATININE 2.3 mg/dL (0.7-1.3); MAGNESIUM 2.4 mg/dL (1.8-2.4)
[2019-06-08 19:19] LABS: POTASSIUM 2.7 mmol/L (3.5-5.1)
[2019-06-08 20:45] VITALS: BP 139/59
[2019-06-09 06:14] LABS: HEMATOCRIT 42.6 % (42.0-52.0); HEMOGLOBIN 13.5 gm/dL (14.0-18.0); MCHC 31.6 g/dL (28.0-37.0); MCV 82.1 fL (80.0-100.0); PLATELET COUNT 243 thou/uL (150-400); RBC 5.19 mil/uL (4.50-6.00); RDW 22.8 % (10.5-14.5)
[2019-06-09 06:32] LABS: ALBUMIN 2.6 g/dL (3.4-5.0); CALCIUM 7.8 mg/dL (8.5-10.1); CREATININE 1.9 mg/dL (0.7-1.3); MAGNESIUM 2.4 mg/dL (1.8-2.4); TOTAL BILIRUBIN 0.8 mg/dL (<0.1-1.0); TOTAL PROTEIN 6.5 g/dL (6.4-8.2)
[2019-06-09 06:33] LABS: POTASSIUM 4.4 mmol/L (3.5-5.1)
[2019-06-09 07:23] LABS: HCO3 26.6 mmol/L (22.0-26.0); PCO2 37.8 mmHg (35.0-45.0); PO2 88.1 mmHg (80.0-100.0); pH 7.466 (7.360-7.450); sO2 97.2 % (92.0-98.0)
[2019-06-09 07:35] VITALS: BP 138/58
[2019-06-09 08:13] LABS: ABSOLUTE NEUTROPHILS 12.2 thou/uL (1.4-8.2); ANISOCYTOSIS 1+; PLATELET ESTIMATE NORMAL; POLYCHROMASIA SLIGHT
[2019-06-09 11:43] VITALS: BP 130/64
[2019-06-09 16:43] VITALS: BP 171/59
[2019-06-09 19:15] VITALS: BP 151/65
[2019-06-10 06:27] LABS: ALBUMIN 2.5 g/dL (3.4-5.0); CALCIUM 6.8 mg/dL (8.5-10.1); CREATININE 1.6 mg/dL (0.7-1.3); PHOSPHORUS 4.3 mg/dL (2.5-4.9)
[2019-06-10 08:31] VITALS: BP 119/69
[2019-06-10 12:58] VITALS: BP 90/75
[2019-06-10 15:34] VITALS: BP 126/62
[2019-06-10 19:46] VITALS: BP 120/92
[2019-06-11 04:13] VITALS: BP 111/45
[2019-06-11 06:53] LABS: ALBUMIN 2.4 g/dL (3.4-5.0); CALCIUM 7.1 mg/dL (8.5-10.1); CREATININE 1.5 mg/dL (0.7-1.3); PHOSPHORUS 2.8 mg/dL (2.5-4.9); POTASSIUM 3.5 mmol/L (3.5-5.1)
[2019-06-11 07:23] VITALS: BP 134/47
[2019-06-11 11:50] VITALS: BP 140/56
[2019-06-11 16:15] VITALS: BP 124/56
[2019-06-11 19:11] VITALS: BP 144/53
[2019-06-12 04:27] VITALS: BP 127/58
[2019-06-12 06:15] LABS: ALBUMIN 2.1 g/dL (3.4-5.0); CALCIUM 6.7 mg/dL (8.5-10.1); CREATININE 1.2 mg/dL (0.7-1.3); PHOSPHORUS 2.5 mg/dL (2.5-4.9); POTASSIUM 3.3 mmol/L (3.5-5.1)
[2019-06-12 07:48] VITALS: BP 147/60
[2019-06-12 12:21] VITALS: BP 131/59
[2019-06-12 16:32] VITALS: BP 118/52
[2019-06-12 19:19] VITALS: BP 117/44
[2019-06-13 03:29] VITALS: BP 130/54
[2019-06-13 06:21] LABS: CALCIUM 7.1 mg/dL (8.5-10.1); CREATININE 1.1 mg/dL (0.7-1.3); PHOSPHORUS 2.3 mg/dL (2.5-4.9); POTASSIUM 3.8 mmol/L (3.5-5.1)
[2019-06-13 08:42] VITALS: BP 138/52
[2019-06-13 12:30] VITALS: BP 147/69
[2019-06-13 17:23] VITALS: BP 134/46
[2019-06-14 04:45] VITALS: BP 134/45
[2019-06-14 06:32] LABS: CALCIUM 7.7 mg/dL (8.5-10.1); CREATININE 0.9 mg/dL (0.7-1.3); POTASSIUM 3.3 mmol/L (3.5-5.1)
[2019-06-14 07:16] VITALS: BP 137/60
[2019-06-14 11:34] VITALS: BP 118/59
[2019-06-14 15:04] VITALS: BP 123/52
[2019-06-14 19:30] VITALS: BP 143/61
[2019-06-15 05:45] VITALS: BP 127/60
[2019-06-15 06:30] LABS: CALCIUM 7.4 mg/dL (8.5-10.1); POTASSIUM 3.2 mmol/L (3.5-5.1)
[2019-06-15 07:30] VITALS: BP 124/58
[2019-06-15 15:22] VITALS: BP 114/48
== END 2019-06-15 17:30 | disposition hospice, inpatient (51) | DRG 252 ==
LOC: 3W 12:36
PROVIDERS: Hospitalist; Internal Medicine Nephrology; ADMIT Internal Medicine
PROC: 06H03DZ Insertion of Intraluminal Device into Inferior Vena Cava, Percutaneous Approach (ICD-10-PCS; principal; 2019-06-08)
DX: I82.493 Acute embolism and thrombosis of other specified deep vein of lower extremity, bilateral (principal); E43 Unspecified severe protein-calorie malnutrition; J96.01 Acute respiratory failure with hypoxia; I26.99 Other pulmonary embolism without acute cor pulmonale; E87.0 Hyperosmolality and hypernatremia; N17.9 Acute kidney failure, unspecified; G93.40 Encephalopathy, unspecified; E87.6 Hypokalemia; Z66 Do not resuscitate; E78.5 Hyperlipidemia, unspecified; E11.22 Type 2 diabetes mellitus with diabetic chronic kidney disease; N18.9 Chronic kidney disease, unspecified; I12.9 Hypertensive chronic kidney disease with stage 1 through stage 4 chronic kidney disease, or unspecified chronic kidney disease; I25.10 Atherosclerotic heart disease of native coronary artery without angina pectoris; R13.10 Dysphagia, unspecified; R41.0 Disorientation, unspecified; G47.33 Obstructive sleep apnea (adult) (pediatric); Z51.5 Encounter for palliative care; R62.7 Adult failure to thrive; Z87.891 Personal history of nicotine dependence; Z91.19 Patient's noncompliance with other medical treatment and regimen; Z68.21 Body mass index [BMI] 21.0-21.9, adult
CPT/HCPCS: 10779; 10879